=== PATIENT | female | born 1965 | race Caucasian/White ===

== ENCOUNTER → 2016-09-20 | Outpatient (CLI) | payer OTHER ==
[~2016-09-20] MED LIST: AMLO10TA2 PO; BUPRTAB51 PO; CLON0.5T3 PO; IRBE1TAB50 PO; LEVO100T PO; MTR600X PO; OMEP40CA PO; TYLOTC500 PO
== END | disposition home or self-care (01) ==
LOC: C.CPL 14:01
PROVIDERS: ATTEND Orthopaedic Surgery
DX: Z01.810 Encounter for preprocedural cardiovascular examination (principal)

== ENCOUNTER 2017-07-05 15:52 | Emergency (ER) | payer OTHER ==
[~2017-07-05] VITALS: Ht 162.6 cm; Wt 87.6 kg
[2017-07-05 15:57] VITALS: TEMP 36.5; Ht 162.6 cm; Wt 87.6 kg
[2017-07-05] MEDS ORDERED: HYDROmorphone INJ 1 MG/ML SYR IV STA (16:29)
[2017-07-05] MEDS ORDERED: METOCLOPRAMIDE HCL INJ 5 MG/ML 2 ML VIAL IV. STA (16:29)
--- NOTE | 2017-07-05 16:31 | EMERGENCY ROOM VISIT NOTE ---
History Report prepared by Fiona: Rogelio Tomlin Under the Supervision of: Dr. Jorden Marion M.D. First contact with patient: 16:18 Chief Complaint: GI ASSESSMENT Stated Complaint: ABDOMINAL PAIN, CRAMPING,IRREGULAR BOWEL MOVEMENTS Nursing Triage Summary: Patient ambulatory to triage with a steady and upright gait, states "I have had really bad abdominal pain for the last couple of weeks. I saw my PCP yesterday. I talked to him about my BMs today. They are yellowish with black all over them. I have had diarrhea mostly. Today was the most normal BM I have had. I took some pictures for the doctor. I have nausea but no vomiting. Most of my pain is in the middle of my abdomen, lower." Patient took a tramadol for her pain around 1245. Patient admits to 10 pound weight loss in the last several weeks. Decreased appetite. PMH: Acid reflux, possible IBS. History of Present Illness The patient is a 52 year old female who presents to the Emergency Room with complaints of cramping diffuse abdominal pain that began several weeks ago. She rates her pain a 4/10 in severity. Over this time, the patient has been experiencing a persistent cycle of abdominal cramping with varying degrees of bowel movements. She has been intermittently constipated and has been having diarrhea as well. Today, she notes that her bowel movement was very strange and "paper-like." She notes that she is unsure if eating affects her symptoms because she only eats once a day. She feels nauseated but denies any vomiting. She has never had a coloscopy and has never had abdominal surgery. She denies any fevers, chest pain, or shortness of breath. She has been taking Tramadol to try to relieve her pain. She notes that she received a CT of her head this morning secondary to "water" running out of her nose every time she bends over. Source of History: patient Onset: several weeks ago Position: abdomen Symptom Intensity: 4/10 Quality: cramping Timing: constant Associated Symptoms: + nausea, + diarrhea, No fevers, No chest pain, No SOB , No vomiting Note: She is intermittently constipated. Review of Systems See HPI for pertinent positives & negatives. A total of 10 systems reviewed and were otherwise negative. Past Medical & Surgical Medical Problems: (1) Headache (2) Hypertension (3) Kidney stones (4) Non-cardiac chest pain (5) Tension headache Family History FH: cancer Hypertension Social History Smoking Status: Current Every Day Smoker Alcohol Use: occasionally Drug Use: none Marital Status: single Housing Status: lives with significant other Occupation Status: employed Current/Historical Medications Scheduled Amlodipine Besylate (Norvasc), 10 MG PO QAM Dicyclomine Hcl (Bentyl), 1 CAP PO TID Irbesartan (Irbesartan), 300 MG PO QAM Levothyroxine Sodium (Levothyroxine Sodium), 125 MCG PO DAILY Omeprazole (Prilosec), 40 MG PO DAILY Ondasetron Odt (Zofran Odt), 4 MG SL Q6H Venlafaxine Hcl (Effexor), 75 MG PO DAILY Venlafaxine Hcl (Effexor), 50 MG PO DAILY Scheduled PRN Acetaminophen (Tylenol), 1,000 MG PO Q8 PRN for Headache or Pain Clonazepam (Klonopin), 0.5 MG PO TID PRN for Anxiety Ibuprofen (Ibuprofen), 600 MG PO Q6H PRN for Pain Allergies Coded Allergies: Amoxicillin (Verified Allergy, Intermediate, RASH, 07/05/17) Nickel (Verified Allergy, Intermediate, RASH, 07/05/17) Physical Exam Vital Signs Date Time Temp Pulse Resp B/P (MAP) Pulse Ox O2 Delivery O2 Flow Rate FiO2 07/05/17 20:03 80 18 138/88 95 Room Air 07/05/17 18:18 78 18 138/88 95 Room Air 07/05/17 17:10 84 07/05/17 15:57 36.5 104 20 137/71 98 Room Air Physical Exam GENERAL: Patient is a healthy-appearing well-nourished female HEAD: Normocephalic atraumatic EYES: Ocular movements intact pupils equal and react to light OROPHARYNX mucous membranes are moist no exudates present no erythema or edema present NECK: Supple no nuchal rigidity CHEST: Good equal expansion LUNGS: Clear and equal to auscultation CARDIAC: Normal S1 and S2 ABDOMEN: Soft tenderness to the RUQ no guarding BACK: No CVA tenderness EXTREMITIES: No pain upon palpation normal muscle strength in all groups no clubbing cyanosis or edema NEURO: Patient is following commands and answering questions appropriately. Alert and oriented x3 Cranial Nerves 2-12 grossly intact Medical Decision & Procedures ER Provider Diagnostic Interpretation: Radiology results as stated below per my review and radiologist interpretation: ABDOMEN LIMITED (US) HISTORY: 52 years-old Female Pt c/o RUQ abd pain acute right upper quadrant abdominal pain COMPARISON: None available TECHNIQUE: Multiple real-time sonographic images of the abdominal right upper quadrant were obtained assessing grayscale appearance and color flow FINDINGS: Pancreatic duct measures within the upper limits of normal at 3 mm. No obstructing lesion or mass identified. Distal pancreatic body and tail obscured by bowel gas. Imaged portions of the pancreas are unremarkable. There is mildly increased echogenicity with poor through transmission of the liver which measures up to 18.5 cm. No hepatic mass lesions or intrahepatic biliary ductal dilation identified. No shadowing cholelithiasis, gallbladder wall thickening or pericholecystic fluid. Sonographic Tripp sign reported as negative. Common bile duct is minimally dilated at 7 mm. No obstructing stone or lesion identified. The imaged right kidney is unremarkable without hydronephrosis. IMPRESSION: 1. No sonographic evidence of cholelithiasis or acute cholecystitis. 2. Common bile duct is minimally dilated at 7 mm without obstructing stone or lesion identified. No intrahepatic biliary ductal dilation. 3. Mildly increased echogenicity of the liver suggests fatty infiltration. The above report was generated using voice recognition software. It may contain grammatical, syntax or spelling errors. Electronically signed by: Juliano Ferrell M.D. 07/05/2017 6:03 PM Dictated Date/Time: 07/05/2017 6:01 PM ABDOMEN AND PELVIS CT WITH IV AND ORAL CONTRAST CT DOSE: 671.31 mGy.cm HISTORY: Acute right upper quadrant abdominal pain Pt c/o RUQ abd pain TECHNIQUE: Multiaxial CT images of the abdomen and pelvis were performed following the use of intravenous and oral contrast. A dose lowering technique was utilized adhering to the principles of ALARA. COMPARISON STUDY: Ultrasound of the abdomen same day. FINDINGS: Mild subsegmental dependent bibasilar atelectasis. No pneumatosis or pneumoperitoneum identified. The imaged inferior heart chambers are unremarkable. 12 mm circumscribed low attenuating lesion of the lateral left hepatic lobe suggests hepatic cyst. The liver otherwise appears to be within normal limits. No intrahepatic biliary ductal dilation. Gallbladder, spleen, pancreas and right adrenal gland are unremarkable. Mild nodular thickening of the left adrenal gland. The kidneys, ureters and urinary bladder are within normal limits. Uterus and adnexa are also unremarkable. Abdominal aorta is normal in course and caliber with mild atherosclerotic plaquing. No bulky adenopathy identified. Small duodenal diverticulum. No bowel obstruction. There is trace free fluid within the dependent pelvis with mild mesenteric edema surrounding the transverse colon, hepatic and splenic flexures. Additionally, there is moderate circumferential wall thickening of the colon extending from the hepatic flexure to the splenic flexure and proximal portion of the descending colon. The appendix appears unremarkable in the right lower quadrant. Soft tissues are unremarkable. Bones appear intact. IMPRESSION: 1. Moderate circumferential wall thickening of the transverse colon extending from the hepatic flexure to the splenic flexure with associated inflammatory stranding and mild reactive free pelvic fluid is compatible with colitis likely from infectious or inflammatory etiology. Ischemic etiology is also within the differential however thought to be less likely. 2. No bowel obstruction or pneumoperitoneum. 3. Normal appendix. Electronically signed by: Juliano Ferrell M.D. 07/05/2017 7:25 PM Dictated Date/Time: 07/05/2017 7:17 PM Laboratory Results 07/05/17 16:45 Red Blood Count 4.79, Mean Corpuscular Volume 94.8, Mean Corpuscular Hemoglobin 32.6, Mean Corpuscular Hemoglobin Concent 34.4, Mean Platelet Volume 9.5, Neutrophils (%) (Auto) 65.3, Lymphocytes (%) (Auto) 24.0, Monocytes (%) (Auto) 4.9, Eosinophils (%) (Auto) 5.1, Basophils (%) (Auto) 0.4, Neutrophils # (Auto) 5.22, Lymphocytes # (Auto) 1.92, Monocytes # (Auto) 0.39, Eosinophils # (Auto) 0.41, Basophils # (Auto) 0.03 07/05/17 16:45 Test 07/05/17 16:30 07/05/17 16:45 Urine Color YELLOW Urine Appearance CLEAR (CLEAR) Urine pH 6.5 (4.5-7.5) Urine Specific [place] <= 1.005 (1.000-1.030) Urine Protein NEG (NEG) Urine Glucose (UA) NEG (NEG) Urine Ketones NEG (NEG) Urine Occult Blood TRACE (NEG) Urine Nitrite NEG (NEG) Urine Bilirubin NEG (NEG) Urine Urobilinogen NEG (NEG) Urine Leukocyte Esterase NEG (NEG) Urine RBC 0-4 /hpf (0-4) Urine WBC 0 /hpf (0-5) Urine Epithelial Cells 0-5 /lpf (0-5) Urine Bacteria NEG (NEG) White Blood Count 7.99 K/uL (4.8-10.8) Red Blood Count 4.79 M/uL (4.2-5.4) Hemoglobin 15.6 g/dL (12.0-16.0) Hematocrit 45.4 % (37-47) Mean Corpuscular Volume 94.8 fL (80-100) Mean Corpuscular Hemoglobin 32.6 pg (25-34) Mean Corpuscular Hemoglobin Concent 34.4 g/dl (32-36) Platelet Count 234 K/uL (130-400) Mean Platelet Volume 9.5 fL (7.4-10.4) Neutrophils (%) (Auto) 65.3 % Lymphocytes (%) (Auto) 24.0 % Monocytes (%) (Auto) 4.9 % Eosinophils (%) (Auto) 5.1 % Basophils (%) (Auto) 0.4 % Neutrophils # (Auto) 5.22 K/uL (1.4-6.5) Lymphocytes # (Auto) 1.92 K/uL (1.2-3.4) Monocytes # (Auto) 0.39 K/uL (0.11-0.59) Eosinophils # (Auto) 0.41 K/uL (0-0.5) Basophils # (Auto) 0.03 K/uL (0-0.2) RDW Standard Deviation 45.4 fL (36.4-46.3) RDW Coefficient of Variation 13.2 % (11.5-14.5) Immature Granulocyte % (Auto) 0.3 % Immature Granulocyte # (Auto) 0.02 K/uL (0.00-0.02) Anion Gap 7.0 mmol/L (3-11) Est Creatinine Clear Calc Drug Dose 81.1 ml/min Estimated GFR () 90.0 Estimated GFR (Non- 77.7 BUN/Creatinine Ratio 13.2 (10-20) Calcium Level 9.0 mg/dl (8.5-10.1) Total Bilirubin 0.4 mg/dl (0.2-1) Direct Bilirubin < 0.1 mg/dl (0-0.2) Aspartate Amino Transf (AST/SGOT) 18 U/L (15-37) Alanine Aminotransferase (ALT/SGPT) 24 U/L (12-78) Alkaline Phosphatase 107 U/L (45-117) Total Protein 7.9 gm/dl (6.4-8.2) Albumin 3.5 gm/dl (3.4-5.0) Lipase 133 U/L (73-393) Labs reviewed by ED physician. Medications Administered Medications (Trade) Dose Ordered Sig/Luz Elena Route Start Time Stop Time Status Last Admin Dose Admin Hydromorphone HCl (Dilaudid Inj) 1 mg NOW STAT IV 07/05/17 16:29 07/05/17 16:32 DC 07/05/17 16:29 1 MG Metoclopramide HCl (Reglan Inj) 10 mg NOW STAT IV. 07/05/17 16:29 07/05/17 16:32 DC 07/05/17 16:29 10 MG Potassium Chloride (Vidhya Ciel Elix) 40 meq NOW STAT PO 07/05/17 17:49 07/05/17 17:50 DC 07/05/17 18:24 40 MEQ Sucralfate (Carafate Tab) 1 gm NOW STAT PO 07/05/17 18:07 07/05/17 18:09 DC 07/05/17 18:24 1 GM Al Hydroxide/Mg Hydroxide (Maalox Susp) 30 ml STK-MED ONCE .ROUTE 07/05/17 18:21 07/05/17 18:22 DC 07/05/17 18:23 30 ML Lidocaine HCl (Viscous Lidocaine 2% Soln) 20 ml STK-MED ONCE .ROUTE 07/05/17 18:21 07/05/17 18:22 DC 07/05/17 18:23 20 ML ED Course 1618: Past medical records reviewed. The patient was evaluated in room A4. A complete history and physical examination was performed. 1629: Ordered Reglan Inj 10 mg IV, Dilaudid Inj 1 mg IV 1749: Ordered Potassium Chloride 40 meq PO 1807: Ordered Carafate Tab 1 gm PO, Gi Cocktail 24 ml PO 1943: Upon reexamination the patient is resting. I discussed results and treatment plan with the patient. She verbalizes agreement and understanding. The patient is ready for discharge. Medical Decision Differential diagnosis: Etiologies such as appendicitis, diverticulitis, PUD, biliary pathology, UTI, pancreatitis, obstruction, mesenteric ischemia, aortic pathology, infections, inflammatory bowel disease, renal colic, as well as others were entertained. This is a 52-year-old female who presents emergency department complaining of abdominal cramping. I will note that the patient has normal formed stools. She was able to give a stool sample. Serial abdominal examinations were performed on the patient in the emergency department and at no tender the patient exhibited a surgical abdomen. She was given Dilaudid in the emergency department for her pain As well as Zofran. Repeat examination revealed improvement patient's symptoms. The patient does not have an elevation in her white blood count cell count has a normal renal profile has a normal liver profile and has normal lipase. She was sent for a ultrasound of the right upper quadrant. She does not show any evidence of acute cholecystitis. CAT scan the abdomen pelvis is concerning for gastroenteritis. I do believe the patient needs follow-up with gastroenterology. I recommended a clear liquid diet for the next 48 hours as well as the patient continuing her Protonix. She' ll be given Zofran and Bentyl at home. Patient was in agreement with the treatment plan. Medication Reconcilliation Current Medication List: was personally reviewed by me Blood Pressure Screening Patient's blood pressure: Normal blood pressure Blood pressure disposition: Did not require urgent referral Impression Primary Impression: Abdominal pain Scribe Attestation The scribe's documentation has been prepared under my direction and personally reviewed by me in its entirety. I confirm that the note above accurately reflects all work, treatment, procedures, and medical decision making performed by me. Departure Information Dispostion Home / Self-Care Prescriptions Dicyclomine Hcl (BENTYL) 10 Mg Cap 1 CAP PO TID for 30 Days, #90 CAP Prov: Jorden Marion MD 07/05/17 Ondasetron Odt (ZOFRAN ODT) 4 Mg Tab 4 MG SL Q6H for Nausea, #6 TAB Prov: Jorden Marion MD 07/05/17 Referrals Jayro Eldridge PA-C (PCP) Brissa Edwards M.D. Forms HOME CARE DOCUMENTATION FORM, IMPORTANT VISIT INFORMATION, School Instructions, Work Instructions Patient Instructions Abdominal Pain, Diet Clear Liquid Ken, My [facility] Additional Instructions Follow up with Grace's office Clear liquid diet next 48 hours Take 5ml Maalox before every meal and at bedtime You received narcotic or benzodiazepene medication while in the emergency room today. This is an addictive medication that may cause drowziness as well as constipation. Do not drive, operate heavy machinery, or drink alcohol under the influence of this medication. Culture results are usually available in approx 48 hours You have been examined and treated today on an emergency basis only. This is not a substitute for, or an effort to provide, complete comprehensive medical care. It is impossible to recognize and treat all injuries or illnesses in a single emergency department visit. It is therefore important that you follow up closely with [facility]. Call as soon as possible for an appointment. Thank you for your time and consideration. I look forward to speaking with you again soon. Please don't hesitate to call us if you have any questions. Problem Qualifiers Primary Impression: Abdominal pain Abdominal location: epigastric Qualified Codes: R10.13 - Epigastric pain
[2017-07-05] MEDS ORDERED: OPTIRAY 320 IV PRN (16:45)
[2017-07-05 17:00] LABS: BASO % 0.4 %; BASO ABS # 0.03 K/uL (0-0.2); EOS % 5.1 %; EOS ABS # 0.41 K/uL (0-0.5); HEMATOCRIT 45.4 % (37-47); HEMOGLOBIN 15.6 g/dL (12.0-16.0); IG# 0.02 K/uL (0.00-0.02); LYMPH ABS # 1.92 K/uL (1.2-3.4); MEAN CELL VOLUME 94.8 fL (80-100); MEAN CORPUSCULAR HEMOGLOBIN 32.6 pg (25-34); MEAN CORPUSCULAR HGB CONC 34.4 g/dl (32-36); MEAN PLATELET VOLUME 9.5 fL (7.4-10.4); MONO % 4.9 %; MONO ABS # 0.39 K/uL (0.11-0.59); NEUT % 65.3 %; NEUT ABS # 5.22 K/uL (1.4-6.5); PLATELET COUNT 234 K/uL (130-400); RED CELL DISTRIBUTION WIDTH CV 13.2 % (11.5-14.5); RED CELL DISTRIBUTION WIDTH SD 45.4 fL (36.4-46.3); WHITE BLOOD COUNT 7.99 K/uL (4.8-10.8)
[2017-07-05] MEDS ORDERED: LEVO125T5 PO (17:25)
[2017-07-05] MEDS ORDERED: OMEP40CA41 PO (17:25)
[2017-07-05] MEDS ORDERED: VENL50TA2 PO (17:25)
[2017-07-05] MEDS ORDERED: EFF75 PO (17:25)
[2017-07-05 17:35] LABS: ALBUMIN 3.5 gm/dl (3.4-5.0); ALT/SGPT 24 U/L (12-78); AST/SGOT 18 U/L (15-37); BLOOD UREA NITROGEN 11 mg/dl (7-18); CARBON DIOXIDE 28 mmol/L (21-32); CREATININE 0.85 mg/dl (0.60-1.20); GLUCOSE 102 mg/dl (70-99); LIPASE 133 U/L (73-393); POTASSIUM 3.1 mmol/L (3.5-5.1); SODIUM 135 mmol/L (136-145)
[2017-07-05 17:38] LABS: ALKALINE PHOSPHATASE 107 U/L (45-117); TOTAL PROTEIN 7.9 gm/dl (6.4-8.2)
[2017-07-05] MEDS ORDERED: POTASSIUM CHLORIDE 20 MEQ/15 ML UDC PO STA (17:49)
--- NOTE | 2017-07-05 18:04 | DIAGNOSTIC IMAGING REPORT ---
ABDOMEN LIMITED (US) HISTORY: 52 years-old Female Pt c/o RUQ abd pain acute right upper quadrant abdominal pain COMPARISON: None available TECHNIQUE: Multiple real-time sonographic images of the abdominal right upper quadrant were obtained assessing grayscale appearance and color flow FINDINGS: Pancreatic duct measures within the upper limits of normal at 3 mm. No obstructing lesion or mass identified. Distal pancreatic body and tail obscured by bowel gas. Imaged portions of the pancreas are unremarkable. There is mildly increased echogenicity with poor through transmission of the liver which measures up to 18.5 cm. No hepatic mass lesions or intrahepatic biliary ductal dilation identified. No shadowing cholelithiasis, gallbladder wall thickening or pericholecystic fluid. Sonographic Tripp sign reported as negative. Common bile duct is minimally dilated at 7 mm. No obstructing stone or lesion identified. The imaged right kidney is unremarkable without hydronephrosis. IMPRESSION: 1. No sonographic evidence of cholelithiasis or acute cholecystitis. 2. Common bile duct is minimally dilated at 7 mm without obstructing stone or lesion identified. No intrahepatic biliary ductal dilation. 3. Mildly increased echogenicity of the liver suggests fatty infiltration. The above report was generated using voice recognition software. It may contain grammatical, syntax or spelling errors. Electronically signed by: Juliano Ferrell M.D. 07/05/2017 6:03 PM Dictated Date/Time: 07/05/2017 6:01 PM
[2017-07-05] MEDS ORDERED: SUCRALFATE 1 GM TAB PO STA (18:07)
[2017-07-05] MEDS ORDERED: GI COCKTAIL PO STA (18:07)
[2017-07-05] MEDS ORDERED: ALUMINUM/MAGNESIUM SUSP 30 ML UDC ONE (18:21)
[2017-07-05] MEDS ORDERED: LIDOCAINE HCL 2% VISC SOLN 20 ML UDC ONE (18:21)
--- NOTE | 2017-07-05 19:26 | DIAGNOSTIC IMAGING REPORT ---
ABDOMEN AND PELVIS CT WITH IV AND ORAL CONTRAST CT DOSE: 671.31 mGy.cm HISTORY: Acute right upper quadrant abdominal pain Pt c/o RUQ abd pain TECHNIQUE: Multiaxial CT images of the abdomen and pelvis were performed following the use of intravenous and oral contrast. A dose lowering technique was utilized adhering to the principles of ALARA. COMPARISON STUDY: Ultrasound of the abdomen same day. FINDINGS: Mild subsegmental dependent bibasilar atelectasis. No pneumatosis or pneumoperitoneum identified. The imaged inferior heart chambers are unremarkable. 12 mm circumscribed low attenuating lesion of the lateral left hepatic lobe suggests hepatic cyst. The liver otherwise appears to be within normal limits. No intrahepatic biliary ductal dilation. Gallbladder, spleen, pancreas and right adrenal gland are unremarkable. Mild nodular thickening of the left adrenal gland. The kidneys, ureters and urinary bladder are within normal limits. Uterus and adnexa are also unremarkable. Abdominal aorta is normal in course and caliber with mild atherosclerotic plaquing. No bulky adenopathy identified. Small duodenal diverticulum. No bowel obstruction. There is trace free fluid within the dependent pelvis with mild mesenteric edema surrounding the transverse colon, hepatic and splenic flexures. Additionally, there is moderate circumferential wall thickening of the colon extending from the hepatic flexure to the splenic flexure and proximal portion of the descending colon. The appendix appears unremarkable in the right lower quadrant. Soft tissues are unremarkable. Bones appear intact. IMPRESSION: 1. Moderate circumferential wall thickening of the transverse colon extending from the hepatic flexure to the splenic flexure with associated inflammatory stranding and mild reactive free pelvic fluid is compatible with colitis likely from infectious or inflammatory etiology. Ischemic etiology is also within the differential however thought to be less likely. 2. No bowel obstruction or pneumoperitoneum. 3. Normal appendix. Electronically signed by: Juliano Ferrell M.D. 07/05/2017 7:25 PM Dictated Date/Time: 07/05/2017 7:17 PM
[2017-07-05] MEDS ORDERED: ONDA4TAB10 SL (19:41)
[2017-07-05] MEDS ORDERED: DICY10CA55 PO (19:41)
[2017-07-05 20:03] VITALS: BP 138/88; PULSE 80; O2SAT 95
== END 2017-07-05 20:08 | disposition home or self-care (01) ==
LOC: C.EDB 15:54 → C.EDA 20:08
DX: R10.13 Epigastric pain (principal); I10 Essential (primary) hypertension; Z87.442 Personal history of urinary calculi; Z80.9 Family history of malignant neoplasm, unspecified; Z82.49 Family history of ischemic heart disease and other diseases of the circulatory system; F17.210 Nicotine dependence, cigarettes, uncomplicated; Z79.899 Other long term (current) drug therapy

== ENCOUNTER → 2017-07-20 | Day surgery (SDC) | payer OTHER ==
[2017-07-18 14:34] VITALS: Ht 162.6 cm; Wt 88.6 kg
[~2017-07-20] VITALS: Ht 162.6 cm; Wt 88.6 kg
[~2017-07-20] MED LIST changes: +AMLO-114 PO; -AMLO10TA2 PO; -BUPRTAB51 PO; -CLON0.5T3 PO; +EFF75 PO; -IRBE1TAB50 PO; +IRBESARTAN PO; -LEVO100T PO; +LEVO125T5 PO; +LIDOCAINE HCL 2% 2 ML VIAL (20MG/ML) ONE; -MTR600X PO; -OMEP40CA PO; +OMEP40CA41 PO; +POTA10CA28 PO; +PROPOFOL IV EMULSION 10 MG/ML 20 ML VIAL IV ONE; +SODIUM CHLORIDE 0.9% 500ML 500 ML IV ONE; -TYLOTC500 PO; +VENL150C56 PO
[2017-07-20 10:45] VITALS: TEMP 37
--- NOTE | 2017-07-20 11:12 | Endo History and Physical ---
History & Physical Date of Service: Jul 20, 2017. Chief Complaint: ABD Pain, change in stool, colitis Referring Physician: Ashutosh History of Present Illness 52 yo CF who presents for colonoscopy secondary to abdominal pain, change in bowel habits and colitis. Past Medical History Anxiety, Reflux, High Cholesterol, Hypertension, Thyroid Disease, Depression Past Surgical History Hx Cardiac Surgery: No Hx Internal Defibrillator: No Hx Pacemaker: No Hx Abdominal Surgery: Yes (TUBAL LIGATION, UTERINE ALBATION) Hx of Implantable Prosthesis: No Hx Post-Op Nausea and Vomiting: No Hx Cancer Surgery: No Hx Thoracic Surgery: No Hx Orthopedic: Yes (ORIF RT ANKLE (HARDWARE), RT ACL REPAIR, LEFT RCR) Hx Urinary Tract Surgery: No Family History IBD Social History Smoking Status: Current Every Day Smoker Hx Substance Use: No Hx Alcohol Use: Yes (6 DRINKS WEEKLY) Allergies Coded Allergies: Amoxicillin (Verified Allergy, Intermediate, RASH, 07/18/17) Nickel (Verified Allergy, Intermediate, RASH, 07/18/17) Current Medications Reported Home Medications Medications Dose Route/Sig Max Daily Dose Days Date Category Micro-K Ext Rel (Potassium Chloride) 10 Meq Capcr 10 Meq PO QAM 07/18/17 Reported Norvasc (Amlodipine Besylate) 10 Mg Tab 10 Mg PO QAM 07/18/17 Reported [Irbesartan] 1 Tab PO QAM 07/18/17 Reported Levothyroxine Sodium 125 Mcg Tab 1 Tab PO QAM 07/18/17 Reported Effexor Extended Rel (Venlafaxine Hcl) 150 Mg Cap 150 Mg PO QAM 07/18/17 Reported Effexor (Venlafaxine Hcl) 75 Mg Tab 75 Mg PO QAM 07/18/17 Reported Prilosec (Omeprazole) 40 Mg Cap 40 Mg PO QAM 07/18/17 Reported Vital Signs Weight (Kilograms): 88.64 Height (Feet): 5 Height (Inches): 4 Date Time Temp Pulse Resp B/P (MAP) Pulse Ox O2 Delivery O2 Flow Rate FiO2 07/20/17 10:45 37 92 20 138/86 (103) 97 Room Air Physical Exam General Appearance: WD/WN, no apparent distress Respiratory/Chest: Auscultation: breath sounds normal Cardiovascular: Heart Auscultation: RRR Abdomen: Bowel Sounds: normal Inspection & Palpation: soft, non-distended, no tenderness, guarding & rebound Assessment and Plan Assessment: 52 yo CF who presents for colonoscopy secondary to abdominal pain, change in bowel habits and colitis. Plan: Proceed with colonoscopy.
--- NOTE | 2017-07-20 12:32 | GI REPORT ---
Procedure Date: 07/20/2017 11:56 AM Procedure: Colonoscopy Indications: Generalized abdominal pain, Abnormal CT of the GI tract Medicines: Monitored Anesthesia Care Complications: No immediate complications. Estimated Blood Loss: Estimated blood loss: none. Procedure: Pre-Anesthesia Assessment: - Prior to the procedure, a History and Physical was performed, and patient medications and allergies were reviewed. The patient's tolerance of previous anesthesia was also reviewed. The risks and benefits of the procedure and the sedation options and risks were discussed with the patient. All questions were answered, and informed consent was obtained. Prior Anticoagulants: The patient has taken no previous anticoagulant or antiplatelet agents. ASA Grade Assessment: II - A patient with mild systemic disease. After reviewing the risks and benefits, the patient was deemed in satisfactory condition to undergo the procedure. After I obtained informed consent, the scope was passed under direct vision. Throughout the procedure, the patient's blood pressure, pulse, and oxygen saturations were monitored continuously. The scope was introduced through the anus and advanced to the terminal ileum. The colonoscopy was performed without difficulty. The patient tolerated the procedure well. The quality of the bowel preparation was good. The terminal ileum, ileocecal valve, appendiceal orifice, and rectum were photographed. Findings: The perianal and digital rectal examinations were normal. A 4 mm polyp was found in the ascending colon. The polyp was sessile. The polyp was removed with a cold snare. Resection and retrieval were complete. Non-bleeding internal hemorrhoids were found during retroflexion. The hemorrhoids were small. Several random biopsies were obtained with cold forceps for histology in the entire colon. Impression: - One 4 mm polyp in the ascending colon, removed with a cold snare. Resected and retrieved. - Non-bleeding internal hemorrhoids. - Several random biopsies were obtained in the entire colon. Recommendation: - Resume previous diet. - Continue present medications. - Repeat colonoscopy for surveillance based on pathology results. - Return to primary care physician as previously scheduled. Richard Cespedes, DO 07/20/2017 12:32:14 PM This report has been signed electronically. Note Initiated On: 07/20/2017 11:56 AM I attest to the content of the Intraoperative Record and orders documented therein, exceptions below
--- NOTE | 2017-07-20 12:33 | Discharge Instructions ---
Endoscopy Patient Instructions Date / Procedure(s) Performed Jul 20, 2017. Colonoscopy Allergy Information Coded Allergies: Amoxicillin (Verified Allergy, Intermediate, RASH, 07/18/17) Nickel (Verified Allergy, Intermediate, RASH, 07/18/17) Discharge Date / Findings Jul 20, 2017. Colon polyp Random colon biopsies Internal hemorrhoids Medication Instructions OK to resume all medications today as prescribed Reported Home Medications Medications Dose Route/Sig Max Daily Dose Days Date Category Micro-K Ext Rel (Potassium Chloride) 10 Meq Capcr 10 Meq PO QAM 07/18/17 Reported Norvasc (Amlodipine Besylate) 10 Mg Tab 10 Mg PO QAM 07/18/17 Reported [Irbesartan] 1 Tab PO QAM 07/18/17 Reported Levothyroxine Sodium 125 Mcg Tab 1 Tab PO QAM 07/18/17 Reported Effexor Extended Rel (Venlafaxine Hcl) 150 Mg Cap 150 Mg PO QAM 07/18/17 Reported Effexor (Venlafaxine Hcl) 75 Mg Tab 75 Mg PO QAM 07/18/17 Reported Prilosec (Omeprazole) 40 Mg Cap 40 Mg PO QAM 07/18/17 Reported Provider Instructions Activity Restrictions - No exercising or heavy lifting for 24 hours. - Do not drink alcohol the day of the procedure. - Do not drive a car or operate machinery until the day after the procedure. - Do not make any important decisions or sign important papers in 24 hours after the procedure. Following Day: - Return to full activity which may include returning to work/school. Diet Start your diet with liquids and light foods (jello, soup, juice, toast). Then eat your usual diet if not nauseated. Treatment For Common After Affects For mild abdominal pain, bloating, or excessive gas: - Rest - Eat lightly - Lie on right side Follow-Up Information Follow-up with Ashutosh as scheduled Anesthesia Information What You Should Know You have had a procedure that required some medicine to reduce anxiety and discomfort. This treatment is called moderate sedation. After receiving the treatment, you may be sleepy, but you will be able to breathe on your own. The effects of the treatment may last for several hours. Follow these instructions along with Activity/Diet recommendations noted above: * Do NOT do anything where dizziness or clumsiness would be dangerous. * Rest quietly at home today, then you can be up and about tomorrow. * Have a responsible person stay with you the rest of today. * You may have had an I.V. today. If so, you may take the dressing off later today. Recommendations Call your doctor if: * Trouble breathing * Continuous vomiting for more than 24 hours * Temperature above 101 degrees * Severe abdominal pain or bloating * Pain not relieved by pain medicine ordered * There is increased drainage or redness from any incision * A large amount of rectal bleeding greater than 2-3 tablespoons. (If you had a polyp/s removed or have hemorrhoids, a small amount of blood - from the rectum is to be expected.) * You have any unanswered questions or concerns. IN THE EVENT OF A SERIOUS EMERGENCY, GO TO THE NEAREST EMERGENCY ROOM Your discharge instructions were prepared by provider Richard Cespedes. Patient Instructions Signature Page Tara Hutton Patient (or Guardian) Signature/Date: I have read and understand the instructions given to me by my caregivers. Caregiver/RN/Doctor Signature/Date: The above-named patient and/or guardian has received patient instructions on this date. + Original Patient Signature Page (only) stays with chart. Please make copy for patient.
--- NOTE | 2017-07-20 12:46 | Anesthesiology Progress Note ---
Anesthesia Post Op Note Date & Time Jul 20, 2017 at 12:46 Vital Signs Pain Intensity: 0 Vital Signs Past 12 Hours Date Time Temp Pulse Resp B/P (MAP) Pulse Ox O2 Delivery O2 Flow Rate FiO2 07/20/17 12:30 87 16 124/81 (95) 98 Room Air 07/20/17 10:45 37 92 20 138/86 (103) 97 Room Air Notes Mental Status: alert / awake / arousable, participated in evaluation Pt Amnestic to Procedure: Yes Nausea / Vomiting: adequately controlled Pain: adequately controlled Airway Patency, RR, SpO2: stable & adequate BP & HR: stable & adequate Hydration State: stable & adequate Anesthetic Complications: no major complications apparent
[2017-07-20 13:00] VITALS: BP 129/87; PULSE 80; O2SAT 98
== END | disposition home or self-care (01) ==
LOC: C.GI 10:19
PROVIDERS: ATTEND Internal Medicine
DX: R10.84 Generalized abdominal pain (principal); R19.4 Change in bowel habit; D12.2 Benign neoplasm of ascending colon; K64.8 Other hemorrhoids; I10 Essential (primary) hypertension; F17.200 Nicotine dependence, unspecified, uncomplicated; F32.9 Major depressive disorder, single episode, unspecified; Z88.0 Allergy status to penicillin

== ENCOUNTER → 2018-01-23 | Outpatient (CLI) | payer OTHER ==
[~2018-01-23] MED LIST changes: -AMLO-114 PO; +AMLO10TA3 PO; +CLIN300C2 PO; +DOXY100C76 PO; +IRBE1TAB50 PO; -IRBESARTAN PO; -LIDOCAINE HCL 2% 2 ML VIAL (20MG/ML) ONE; -POTA10CA28 PO; -PROPOFOL IV EMULSION 10 MG/ML 20 ML VIAL IV ONE; -SODIUM CHLORIDE 0.9% 500ML 500 ML IV ONE
== END | disposition home or self-care (01) ==
LOC: C.CPL 13:23
PROVIDERS: ATTEND Orthopaedic Surgery
DX: M67.40 Ganglion, unspecified site (principal); R00.0 Tachycardia, unspecified